=== PATIENT | female | born 2005 | race Caucasian/White ===

== ENCOUNTER 2024-07-25 21:29 | Emergency (ER) | payer SELFPAY ==
[~2024-07-25] VITALS: Ht 165.1 cm; Wt 77.3 kg
[2024-07-25 21:36] VITALS: TEMP 98.5
[2024-07-25] MEDS ORDERED: Tetracaine 0.5% Ophth Soln 4 ML BOTTLE OP ONE (21:59)
[2024-07-25] MEDS ORDERED: BACTROBAN15 GM TOP (22:09)
[2024-07-25 22:20] VITALS: BP 90/72; PULSE 69
== END 2024-07-25 22:20 | disposition home or self-care (01) ==
LOC: COL.ER 21:29
DX: S05.12XA Contusion of eyeball and orbital tissues, left eye, initial encounter (principal); W01.0XXA Fall on same level from slipping, tripping and stumbling without subsequent striking against object, initial encounter; Y93.02 Activity, running